=== PATIENT | male | born 1990 | race Caucasian/White ===

== ENCOUNTER 2017-12-07 16:47 | Emergency (ER) | payer MEDICAID ==
[2017-12-07] MEDS ORDERED: IV NS 0.9% 1,000 ML IV ONE (17:00)
[2017-12-07] MEDS ORDERED: LORAZEPAM INJ 2 MG/ML VIAL IVP ONE (17:00)
[2017-12-07] MEDS ORDERED: ONDANSETRON HCL/PF 4 MG/2 ML VIAL IVP ONE (17:00)
[2017-12-07] MEDS ORDERED: IV NS 0.9% 1,000 ML BAG IV ONE (17:00)
[2017-12-07] MEDS ORDERED: Thiamine 100 MG in IV D5W 50 ML IV SCH (17:00)
[2017-12-07] MEDS ORDERED: ONDANSETRON HCL/PF 4 MG/2 ML VIAL ONE (17:06)
[2017-12-07] MEDS ORDERED: LORAZEPAM INJ 2 MG/ML VIAL ONE ×4 (17:08→21:03)
[2017-12-07] MEDS ORDERED: LORAZEPAM INJ 2 MG/ML VIAL IV ONE ×3 (18:30→21:00)
[2017-12-07] MEDS ORDERED: POTASSIUM CHLORIDE 20 MEQ TAB.PRT.SR PO ONE ×2 (21:00→21:02)
== END 2017-12-08 04:43 | disposition home or self-care (01) ==
DX: F10.239 Alcohol dependence with withdrawal, unspecified (principal); F32.9 Major depressive disorder, single episode, unspecified